=== PATIENT | female | born 1970 | race Caucasian/White ===

== ENCOUNTER 2021-10-14 10:21 | Emergency (ER) | payer BC, SELFPAY ==
[2021-10-14] VITALS (33 sets, daily range): BP systolic 110–148; BP diastolic 69–86; PULSE 60–91; RESP 12–28; TEMP 36.5; O2SAT 94–100
--- NOTE | ~2021-10-14 | CT_ITS ---
EXAMINATION: CTA chest PE protocol DATE: 10/14/2021 17:26 INDICATION: Chest pain and dyspnea TECHNIQUE: Computed tomography (CT) pulmonary angiogram of the chest was performed with 100 mL Omnipa que-350 intravenous contrast. Additional 3D reconstructions utilizing coronal maximum intensity proje ction (MIP) were performed. Automated exposure control and iterative reconstruction technique were em ployed. The dose-length product was 681.38 mGy-cm. COMPARISON: None FINDINGS: Excellent contrast opacification of the pulmonary arteries. There is mild streak artifact from dense contrast in the superior vena cava and right atrium. Minimal scattered respiratory motion artifact wh ich does not significantly limit evaluation. No pulmonary embolism. Tiny calcified nodule along the r ight minor fissure consistent with old granulomatous disease. No pneumonia, pulmonary edema, pleural effusion or pneumothorax. Heart size is normal. No pericardial effusion. Thoracic aorta is normal in caliber with no dissection. No pathologically enlarged thoracic lymphadenopathy. Small sliding-type h iatal hernia. 3.5 cm rim calcified splenic lesion near the hilum with relatively low central attenuat ion with no contrast enhancement which could represent either sequela of old trauma and hematoma or p otentially a completely thrombosed splenic artery aneurysm. Cholecystectomy clips at the gallbladder fossa. Moderate thoracic spondylosis. IMPRESSION: 1. No pulmonary embolism or other acute cardiopulmonary disease. 2. Small sliding-type hiatal hernia. 3. 3.5 similar rim calcified splenic lesion with differential including sequelae of old trauma/hemato ma or thrombosed splenic artery aneurysm. Reviewed, dictated and finalized at location A. IMPRESSION: 1. No pulmonary embolism or other acute cardiopulmonary disease. 2. Small sliding-type hiatal hernia. 3. 3.5 similar rim calcified splenic lesion with differential including sequela e of old trauma/hematoma or thrombosed splenic artery aneurysm.
--- NOTE | ~2021-10-14 | XR_ITS ---
XR chest 2V DATE: 10/14/2021 10:40 INDICATION: Left chest pain. History of smoking. TECHNIQUE: PA and lateral views COMPARISON: None FINDINGS: Rounded approximately 3.1 cm a shell calcification of the left upper quadrant which may be within the spleen or possibly calcified splenic artery aneurysm. Normal heart size. No hilar or mediastinal enlargement. No pulmonary infiltrate or consolidation, ple ural effusion or pulmonary vascular congestion or pneumothorax. Status post cholecystectomy. Mild degenerative change of the thoracic and lumbar spine. IMPRESSION: 3.1 cm egg shell calcification, left upper quadrant, possibly splenic or splenic artery c alcified aneurysm Status post cholecystectomy No active cardiopulmonary disease Reviewed, dictated and finalized at location B. IMPRESSION: 3.1 cm egg shell calcification, left upper quadrant, possibly splen ic or splenic artery calcified aneurysm Status post cholecystectomy No active cardiopulmonary disease
--- NOTE | 2021-10-14 10:23 | ECG_ITS ---
Measurements Intervals [place] Rate: 85 P: 41 UT: 145 QRS: 37 QRSD: 73 T: 35 QT: 332 QTc: 396 Interpretive Statements SINUS RHYTHM BASELINE ARTIFACT LOW QRS VOLTAGE IN PRECORDIAL LEADS CANNOT RULE OUT SEPTAL MYOCARDIAL INFARCTION, OF INDETERMINATE AGE BORDERLINE ECG NO PREVIOUS ECG AVAILABLE FOR COMPARISON Electronically Signed On 10-14-2021 12:53:55 CDT by Minor Baez M.D.
[2021-10-14 10:46] LABS: Basophils Percent Auto 0.5 % (0.2-1.2); Eosinophils Absolute Auto 0.1 K/mm3 (0-0.3); Eosinophils Percent Auto 2.2 % (0-4.4); Hematocrit 43.6 % (37.0-47.0); Hemoglobin 13.9 g/dL (12.0-15.0); Immature Granulocyte Absolute 0.01 K/mm3 (0.00-0.031); Immature Granulocyte Percent A 0.2 % (0-0.5); Lymphocytes Absolute Auto 2.11 K/mm3 (0.9-3.2); Mean Corpuscular HGB Conc 31.9 g/dl (32-36); Mean Corpuscular Hemoglobin 29.1 pg (26-34); Mean Corpuscular Volume 91.4 fl (80-100); Mean Platelet Volume 10.4 fl (7.4-10.4); Monocytes Absolute Auto 0.3 K/mm3 (0.1-0.6); Monocytes Percent Auto 5.3 % (2.6-8.5); Neutrophils Absolute Auto 3.4 K/mm3 (1.3-6.7); Neutrophils Percent Auto 56.8 % (45.5-73.1); Platelet Count Result 200 k/mm3 (150-375); Red Blood Count 4.77 M/mm3 (4.2-5.4); Red Cell Distribution Width 13.5 % (11.5-14.5)
[2021-10-14 10:50] LABS: Alanine Aminotransferase 22 U/L (6-35); Albumin Level 4.5 g/dL (3.5-5.1); Alkaline Phosphatase 68 U/L (38-126); Anion Gap 7 mmol/L (8-16); Aspartate Amino Transferase 24 U/L (14-36); Bilirubin,Total 0.7 mg/dL (0.2-1.3); Blood Urea Nitrogen 17 mg/dL (7-17); Calcium 9.4 mg/dL (8.4-10.2); Carbon Dioxide 27 mmol/L (22-30); Chloride 103 mmol/L (98-107); Estimated CRCL calculation 83 ml/min; Estimated Glomerular Filt Rate > 60; Glucose 104 mg/dL (65-110); Lipase 121 U/L (23-300); Potassium 4.3 mmol/L (3.4-5.0); Sodium 137 mmol/L (137-145)
[2021-10-14 10:56] LABS: Prothrombin Time 13.1 Seconds (11.1-14.7)
[2021-10-14 10:57] LABS: Partial Thromboplastin Time 32.8 SECONDS (22.3-36.8)
[2021-10-14 11:02] LABS: Troponin I < 0.012 ng/mL (0.000-0.034)
[2021-10-14] MEDS: KETOROLAC 30 MG/ML VIAL (*BKC) IV PUSH (11:40)
[2021-10-14 12:16] LABS: D Dimer 0.27 ug/mL (<0.48)
[2021-10-14 13:58] LABS: Troponin I < 0.012 ng/mL (0.000-0.034)
[2021-10-14] MEDS: BELLADONNA ALK/PHENOB ELIX 10 ML, MAG HYDROX/ALUMINUM HYD/SIMETH 30 ML, LIDOCAINE HCL 2... PO (16:38)
--- NOTE | 2021-10-14 16:53 | ED.CHESTPAIN ---
HPI - Chest Pain General Chief Complaint: Chest Pain Stated Complaint: chest pain Time Seen by Provider: 10/14/21 11:16 Source: RN notes reviewed History of Present Illness HPI narrative: Patient presents emergency department from home for chest pain. Patient states chest pain has been ongoing since yesterday morning states the pain is constant located left-sided chest states that the pain never resolves the pain at times is worse with deep inspiration and feels like it catches she denies any trauma or injury she did denies any fevers or chills abdominal pain nausea vomiting other symptoms Related Data Allergies Allergy/AdvReac Type Severity Reaction Status Date / Time Sulfa (Sulfonamide Allergy Intermediate Swelling Verified 10/14/21 11:28 Antibiotics) Review of Systems Review of Systems: Gen.: Denies fevers or chills ENT: Denies congestion Respiratory: Reports shortness of breath CV: See HPI GI: Denies abdominal pain nausea, emesis or diarrhea Musculoskeletal: Denies back pain or muscle pain Neuro: Denies numbness, tingling, weakness or focal weakness Skin: Denies rash Except as documented, all other systems reviewed and negative [facility] Past Medical History Medical History (Updated 10/14/21 @ 18:14 by Loc Han DO) Patient denies significant medical history Social History Social History (Updated 10/14/21 @ 16:54 by Loc Han DO) Smoking status: Current every day smoker Exam Narrative: APPEARANCE: No acute distress, nontoxic, resting in bed EYES: EOMI HEENT: Normocephalic, atraumatic, OMM RESPIRATORY: No respiratory distress Clear to auscultation bilaterally with no rhonchi wheezing or rales. CARDIOVASCULAR: Regular rate and rhythm without murmurs rubs or gallops. Chest: Tender palpation left anterior superior chest wall ABDOMINAL: Soft, nontender, nondistended, no rebound or guarding MUSCULOSKELETAl: Moves all extremities. No clubbing, cyanosis or edema. NEURO: Awake and alert. Following commands, speech normal, no focal deficits SKIN:: Warm, dry. No rashes lesions or abrasions PSYCHIATRIC: Normal affect/mood, Course Course Emergency Course: Discussed with Dr. Baez presentation work-up. At this time feels patient may be discharged follow-up as an outpatient Discussed with patient her splenic calcification she states that this all that has been fully work-up performed past Discussed with patient results of workup and diagnosis. Discussed need for follow-up with primary care, proper use of medication, and reasons to return to the emergency department. Patient understands and agrees to current treatment plan Vital Signs Vital signs: Vital Signs Temperature 97.7 F 10/14/21 10:40 Pulse Rate 86 10/14/21 10:40 Respiratory Rate 18 10/14/21 10:40 Blood Pressure 146/80 H 10/14/21 10:40 Pulse Oximetry 99 10/14/21 10:40 Oxygen Delivery Room Air 10/14/21 10:40 Temperature 97.7 F 10/14/21 10:40 Pulse Rate 62 10/14/21 17:33 Respiratory Rate 15 10/14/21 17:33 Blood Pressure 148/76 H 10/14/21 17:01 Pulse Oximetry 99 10/14/21 17:33 Oxygen Delivery Room Air 10/14/21 10:40 MDM - Chest Pain MDM Narrative Medical decision making narrative: Patient's EKGs and labs are without significant high risk changes. Cardiac risk factors reviewed. Patient is felt likely low risk for ACS and reasonable for further risk stratification testing as an outpatient. No aneurysm pulmonary embolism or pneumonia seen on CTA chest patient is felt to be a reasonable candidate for continued evaluation as an outpatient patient's been in the emergency department with pain for over 24 hours 3 troponins all negative in the ER Lab Data Result diagrams: 10/14/21 10:29 10/14/21 10:29 Labs: Lab Results 10/14/21 10/14/21 10/14/21 Range/Units 10:29 10:29 10:29 WBC 6.0 (4.5-10.0) K/mm3 RBC 4.77 (4.2-5.4) M/mm3 Hgb 13.9 (12.0-15.0) g
[2021-10-14 17:28] LABS: Troponin I < 0.012 ng/mL (0.000-0.034)
== END 2021-10-14 18:20 | disposition home or self-care (01) ==
PROVIDERS: Emergency Provider Emergency Medicine; PCP Physician Assistant
DX: R07.89 Other chest pain (principal)
CPT/HCPCS: 36415; 71046; 71275; 80053; 83690; 84484; 85025; 85380; 85610; 85730; 93005; 96374; 99284; A9270; J1885; Q9967

== ENCOUNTER 2023-10-05 09:11 | Outpatient (CLI) | payer BC, SELFPAY ==
--- NOTE | ~2023-10-05 | MR_ITS ---
EXAMINATION: MR lumbar spine wo con DATE: 10/05/2023 09:59 INDICATION: Other intervertebral disc displacement,lumbar . TECHNIQUE: Magnetic resonance imaging (MRI) of the lumbar spine was performed without intravenous con trast. Sequences included sagittal T2-weighted FSE, sagittal T2-weighted FS FSE, sagittal T1-weighted FSE, and axial T2-weighted FSE. COMPARISON: CTPA 10/14/2021 2 FINDINGS: 12 rib-bearing thoracic vertebral bodies identified on prior CTPA. The last fully formed an d hydrated disc in this examination is designated L5-S1. Rudimentary disc at S1-S2. Modic type II sayra nge at L1-2. Conus terminates at L1-2. Severe height loss and mild marginal osteophytosis at L1-2. Mi ld height loss and hydration loss at L5-S1. The following disc levels are specifically discussed: T11-T12: The disc does not extend beyond the endplate margin. There is no facet joint osteoarthritis. There is no neural foraminal stenosis. There is no central canal stenosis. T12-L1: The disc does not extend beyond the endplate margin. There is no facet joint osteoarthritis. There is no neural foraminal stenosis. There is no central canal stenosis. L1-L2: Mild diffuse bulge. There is mild facet joint osteoarthritis. There is no neural foraminal geno nosis. There is no central canal stenosis. L2-L3: The disc does not extend beyond the endplate margin. There is mild facet joint osteoarthritis. There is no neural foraminal stenosis. There is no central canal stenosis. L3-L4: The disc does not extend beyond the endplate margin. There is mild facet joint osteoarthritis. There is no neural foraminal stenosis. There is no central canal stenosis. L4-L5: The disc does not extend beyond the endplate margin. There is mild facet joint osteoarthritis. There is no neural foraminal stenosis. There is no central canal stenosis. L5-S1: The disc does not extend beyond the endplate margin. There is mild facet joint osteoarthritis. There is no neural foraminal stenosis. There is no central canal stenosis. IMPRESSION: Transitional anatomy, recommend radiographs of the entire spine for accurate spinal level numbering i f intervention is planned. Multilevel degenerative disc disease, moderate at L1-2. No severe central canal or neural foraminal narrowing. Multilevel mild facet arthropathy. Reviewed, dictated and finalized at location K. IMPRESSION: Transitional anatomy, recommend radiographs of the entire spine for accurate sp inal level numbering if intervention is planned. Multilevel degenerative disc d isease, moderate at L1-2. No severe central canal or neural foraminal narrowing . Multilevel mild facet arthropathy.
== END 2023-10-05 09:12 ==
LOC: MICIMG 09:13
PROVIDERS: PCP Physician Assistant
DX: M51.26 Other intervertebral disc displacement, lumbar region (principal)
CPT/HCPCS: 72148

== ENCOUNTER 2025-03-13 00:59 | Day surgery (SDC) | payer BC, SELFPAY ==
[2025-02-14 13:49] VITALS: BMI 44.5
--- OUTSIDE RECORDS SUMMARY | 2025-03-13 01:01 | XMS_ITS | Data Portability ---
Author Organization [facility] Address [address] [place] [address] Assessment Encounter Date Assessment Date Assessment LastModified by Organization Details LastModified Time 11/07/2023 11/07/2023 Mammogram: dec 2022: coming up due. sees dr. cunningham colonoscopy: pt declines eye exam: overdue dental exam: way overdue. pt follows with dr. jacques of cardiology for her heart palpitations and cholesterol. [email or web address] Not available 11/07/2023 15:26:20 Plan of Treatment Reminders Order Date Submit Date Provider Last Modified By Organization Details Last Modified Time Details Appointments None recorded. Lab insulin, serum 2023 024 [facility] (Lab), [address] [place], [address], 4 14:17:25 TSH, serum, reflex free T4 2023 024 [facility] (Lab), [address] [place], [address], 4 20:51:25 CMP, serum or plasma 2023 024 [facility] (Lab), [address] [place], [address], 4 20:51:25 CBC w/ auto diff [email or web address] (Lab), [address] [place], [address], 17:29:02 vitamin B12 + folate, serum or blood 2023 024 [facility] (Lab), [address] [place], [address], 20:51:25 lipid panel, serum 2023 024 [facility] (Lab), [address] [place], [address], 20:51:24 hemoglobin A1c, QN, blood [address] (Lab), [address] [place], [address], 17:29:02 Referral None recorded. Procedures None recorded. Surgeries None recorded. Imaging None recorded. Medication Orders None recorded. Patient TargetsNo targets recorded. Patient Instructions Encounter Date Encounter Id Patient Instructions Last Modified By Organization Details Last Modified Time 11/07/2023 [id number] A healthy lifestyle: care instructions [email or web address] Not available 11/07/2023 15:35:35 Reason for Referral None Reported. Results Created Date Observation Date Name Description Value Unit Range Abnormal Flag Note LastModifiedBy Organization Detail LastModifiedTime 10/07/1910/05/2023 MRI, lumba r spine , w/o contr ast No observ ation record ed. [email or web address] [facility] [address], [place], [address], 10/07/2023 10:39:00 12/29/1912/29/2023 home sleep study No observ ation record ed. [email or web address] [facility] [address], [place], [address], 12/30/2023 17:53:10 12/29/19 24 12/26/2023 home sleep study No observ ation record ed. [email or web address] [facility] [address], [place], [address], 12/30/2023 17:53:35 03/11/20 24 03/09/2024 PET-C T, myoca rdial perfu harika, multi ple studi es at rest and stres s No observ ation record ed. [email or web address] [facility] [address] [facility], [place], [address], 03/11/2024 22:18:55 04/10/19 25 04/10/2024 , echoc ardio gram No observ ation record ed. [email or web address] [facility] [address] [facility] [address], [place], [address], 04/11/2024 17:28:24 Result Notes None recorded. Problems Name Problem SNOMED Code Status Onset Date Resolution Date Notes Provider Name and Address Organization Details Recorded Time Body mass index 40+ - severely obese 959534054 Active 2023 MARLENA Pantoja Attn: Accountdeuce g,[address], [place], [address], [place] - [facility] 4 15:35:07 Obesity 130660117 Active 2023 MARLENA Pantoja Attn: Accountin g,[address], [place], [address], [place] [facility] 4 15:35:10 Hyperlipide oc 17473207 Active 2023 MARLENA Pantoja Attn: Accountin g,[address], [place], [address], [place] [facility] 4 20:23:48 Gastroesoph ageal reflux disease without esophagitis 054867016 Active 2023 MARLENA Pantoja Attn: Accountin g,[address], [place], [address], [place] [facility] 4 20:24:31 Long-term drug therapy Active 2023 MARLENA Pantoja Attn: Stacy mclean,[address], [place], [address], [facility] - [facility] 4 20:24:47 Colon cancer screening declined 4276830059463 9 Active 2023 MARLENA Pantoja Attn: Stacy mclean,[address], [place], [address], [facility] - [facility] 4 20:25:11 Positive screening for depression on PHQ-9 (Patient Health Questionnai re 9) 8584449474829 00 Active 2023 MARLENA Pantoja Attn: Stacy mclean,[address], [place], [address], [facility] - [place] 4 20:25:36 Problem Notes None recorded. Procedures Surgical History Date Name Laterality Status Provider Name and Address Organization Details Recorded Time 03/14/19 16 procedure on ovary completed Brandyn Mancia MA [facility] 11/07/2023 15:41:51 03/14/19 16 cystopexy completed Brandyn Mancia MA [facility] 11/07/2023 15:42:03 03/14/18 97 delivery completed Brandyn Mancia MA [facility] 11/07/2023 15:41:27 03/14/18 91 Dilation and Curettage completed Brandyn Mancia MA [facility] 11/07/2023 15:41:34 03/14/18 80 Tonsillectomy completed Brandyn Mancia MA [facility] 11/07/2023 15:40:45 Imaging Results None recorded. Procedure Notes None recorded. Medical Equipment None Reported. Allergies Allergen ID Allergen Name Allergen Category Reaction Reaction Severity Criticality Documentation Date Start Date Code Code System Note Provider Name and Address Organization Details Recorded Time 609803 Substance with sulfonami de structure and antibacte rial mechanism of action (substanc e) medicatio n Not available Not available high 05/16/2024 75486 8003 SNMARTI Kauffman LPN null, [place] - [place] 5 10:50:00 242677 Product containin g 3-hydroxy -3-methyl glutaryl- coenzyme A reductase inhibitor (product) medicatio n Not available Not available high 05/16/2024 01628 009 KACI Teague, [facility] 10:50:14 Medications Name Sig Start Date Stop Date Status Note LastModified by Organization Details LastModified Time atorvastati n 20 mg tablet TAKE 1 TABLET BY MOUTH EVERY DAY 11/06 completed Not Available Not Available Not Available azithromyci n 250 mg tablet TAKE 2 TABLETS BY MOUTH TODAY, THEN TAKE 1 TABLET DAILY FOR 4 DAYS DIRECTED 11/06 completed Not Available Not Available Not Available prednisone 20 mg tablet TAKE 2 TABLETS BY MOUTH DAILY X5 DAYS 11/06 completed Not Available Not Available Not Available pantoprazol e 40 mg tablet,gertrude yed release TAKE 1 TABLET BY MOUTH EVERY DAY 11/06 completed Not Available Not Available Not Available furosemide 20 mg tablet TAKE 2 TABLETS BY MOUTH ONCE DAILY DIRECTED active Not Available Not Available No t Available metoprolol succinate ER 25 mg tablet,exte nded release 24 hr TAKE 1 TABLET BY MOUTH EVERY DAY active Not Available Not Available No t Available albuterol sulfate HFA 90 mcg/actuati on aerosol inhaler TAKE 2 PUFFS BY MOUTH EVERY 4 TO 6 HOURS NEEDED active Not Available Not Available No t Available ezetimibe 10 mg tablet TAKE 1 TABLET BY MOUTH EVERY DAY active Not Available Not Available No t Available nitrofurant oin monohydrate /macrocryst als 100 mg capsule TAKE 1 CAPSULE BY MOUTH EVERY 12 HOURS active Not Available Not Available No t Available Zepbound 2.5 mg/0.5 mL subcutaneou s pen injector INJECT 2.5 MG SUBCUTANE OUSLY WEEKLY active Not Available Not Available No t Available Vitals Date Recorded Respiratory rate Systolic And Diastolic Provider Name and Address Organization Details Last Updated DateTime 11/07/2023 20 /min 118/80 mm[Hg] MARLENA Pantoja Attn: Accounting,[address], [place], [address], [place] 11/07/2023 15:33:38 Date Recorded Body weight Body mass index (BMI) Body height Heart rate Oxygen saturation Body temperature Systolic And Diastolic Provider Name and Address Organization Details Last Updated DateTime 4 808800. 05 g 45.2 kg/m2 160.02 cm 72 /min 98 % 98.2 [degF] 102/70 mm[Hg] Brandyn Mancia MA [place] [facility] 15:01:28 Social History Question Answer Notes LastModified by Organizat ion Details LastModified Time Tobacco Smoking Status Former Smoker Brandyn Mancia MA null, [place] 11/07/2023 14:58:46 What Was The Date Of Your Most Recent Tobacco Screening? 11/07/2023 Information not available 11/07/2023 What Is Your Current Pack Years? 30ormorepack years Information not available 11/07/2023 At What Age Did You Start Smoking Tobacco? 17 Information not available 11/07/2023 How Much Tobacco Do You Smoke? 1 PPW Information not available 11/07/2023 How Many Years Have You Smoked Tobacco? 30 Information not available 11/07/2023 Sex: Female Functional Status Question Answer Note LastModified by Organizat ion Details LastModified Time Do you or have you ever used any other forms of tobacco or nicotine? No Information not available 11/07/2023 What is your level of alcohol consumption? Occasional Information not available 11/07/2023 Mental Status None recorded. Family History Relationship Description Onset Age of this Age Resolved Age Notes LastModified by Organization Details LastModified Time Mother Coronary arterioscler osis [email or web address] Not available 15:42:42 Mother Diabetes mellitus [email or web address] Not available 15:42:49 Mother Disorder of thyroid gland [email or web address] Not available 15:43:08 Mother Heart disease [email or web address] Not available 15:43:17 Mother Hypercholest erolemia [email or web address] Not available 15:43:28 Mother Hypertensive disorder [email or web address] Not available 15:43:34 Mother Kidney disease [email or web address] Not available 15:43:47 Father Hypercholest erolemia [email or web address] Not available 15:43:57 Medical History Condition Response Acid Reflux (GERD) Y High Cholesterol Y Gynecological HistoryNo gynecological history recorded. Obstetrics History GPAL:G 0 P 0 0 0 0 Past Encounters Encounter ID Performer Location Encounter Start Date Encounter Closed Date Diagnosis/Indication Diagnosis SNOMED-CT Code Diagnosis ICD10 Code Diagnosis IMO Codes Diagnosis Note [id number] Omid Ross MD [facility]pin [address] [place] [address] 11/07/2023 14:30:00 11/07/2023 15:46:48 Adult health examination 744388846 Z00.01 Annual wellness exam complete Hyperlipidemia 38950321 E78.5 Fasting lipid panel is due. Patient is on Zetia 10 mg daily and she also follows routinely with Cardiology which is a [facility] ip that she establish years ago with some cardiac symptoms. Gastroesop hageal reflux disease without esophagitis 481830673 K21.9 Patient does have underlying acid reflux and takes Nexium or Prilosec over-the-c ounter for symptom control Long-term drug therapy 970715535 Z79.899 cmp, cbc and b12, folate labs are due Colon canc er screening declined 4789952650 9109 Z53.20 Patient declines colon cancer screening methods Weight gain 7505123 R63. 5 Screening insulin and thyroid levels were ordered for reported weight gain Diabetes m ellitus screening 825530625 Z13.1 Screening A1c is due Body mass index 40+ - severely obese 817309095 Z68.42 BMI 45.2 Obesity 712893099 E66.8 discussed healthy diet, exercise, controllin g carbohydra harley and added sugars in the diet Positive s creening for depression on PHQ-9 (Patient Health Questionnaire 9) 3745707223 11440 Z13.31 Patient scored a 7 on screening today. She reports no acute concerns or problems with her mental status and has no requests for any treatment or discussion s. Health Concerns Section Related Observation LastModified by Organization Detai ls LastModified Time None Recorded Concern Status LastModified by Organization Details LastModified Time None Recorded Advance Directives Directive None Recorded Payers Insurance Date Sequence Insurance Name Policy Number Policy Santos Covered Member ID Santos Member ID Guarantor Name 11/25/2023 1 [place] ([place]) [id number] Fernando Crump [id number] Saraiharriet Crump Notes Date Note Type Note Provider Name and Address Organization Details Recorded Time 4 text/html HyperlipidemiaReported by PatientPatient is taking Zetia 10 mg daily which is managed by Cardiology. Reflux/GERDReported by PatientPatient is taking [id number] Nexium or Prilosec whichever she can get it cheaper cost and she takes this daily for symptom management. Palpitation history which is managed by Dr. Jacques of Cardiology. She takes metoprolol succinate ER 25 mg daily MARLENA Pantoja Attn: Accounting,[address] [place], [address], [facility] - [place] 11/13/2023 20:27:26 OBGyn Episode No OBEpisode recorded.
[2025-03-13 09:32] VITALS: BP 119/79; PULSE 76; RESP 18; TEMP 36.1; O2SAT 100; BMI 46.3
[2025-03-13] MEDS: LACTATED RINGERS 1,000 ML 150 ML IV CONT (09:43)
--- NOTE | 2025-03-13 09:47 | P.PNAN_ITS ---
Anes - Initial Pre Proc Eval Procedure: Operation Date: 03/13/25 11:00 Proposed Procedures p EGD & Screening Colonoscopy - Skyler Anne MD Date/Time: 03/13/25 09:47 Surgeon: Skyler Anne MD Pre Op Diagnosis: GERD, Screening Patient Data Age: 55 Gender: F Height: 1.57 m Weight: 115 kg Last Vital Signs Temp 36.1 C L 03/13/25 09:32 Pulse 76 03/13/25 09:32 Resp 18 03/13/25 09:32 BP 119/79 03/13/25 09:32 Pulse Ox 100 03/13/25 09:32 O2 Del Method Room Air 03/13/25 09:32 Allergies Allergy/AdvReac Type Severity Reaction Status Date / Time Sulfa (Sulfonamide Allergy Intermediate Swelling Verified 03/13/25 09:31 Antibiotics) Home Medications ?Medication ?Instructions ?Recorded ?Confirmed ?Type esomeprazole magnesium 20 mg 20 mg PO DAILY 10/15/24 1 History capsule,delayed release Patient hx anesthesia problems: none Family hx anesthesia problems: none Results Review: All pre-operative results and documents have been reviewed as part of the pre- operative evaluation. [facility] Past Medical History Medical History Mild acid reflux Screening mammogram, encounter for Anxiety Patient denies significant medical history Surgical History Surgical History S/P removal of ovarian cyst History of tonsillectomy History of hysteroscopy (11/20/15) Hscope D&C, LSO-menometrorrhagia, left adnexal mass- benign- Corpus Luteum Hemorrhagic, Adesions, Paratubal Cysts Hx of cholecystectomy (~2009) Delivery by section (~2005) rpt c/s with Tubal ligation Delivery by section (~1996) primary c/s arrest of dilation History of gynecological procedure (~1989) suction D&C missed AB Family History Family History Mother Diabetes mellitus Heart disease Hypothyroidism Kidney disorder Hypertension Father Lung cancer Social History Social History Years smoked: 10 Smoking status: Former smoker Tobacco type: cigarettes Second hand tobacco smoke exposure: No Smoking end date: 07/13/23 Alcohol intake: never Alcohol use details: social 1-2 every 6 months? Substance use: never Substance use type: does not use Lack of Transportation: No Lack of Food: Sometimes True Current Housing: I Have Housing Concerned About Future Housing: No Difficulty Paying Gas/Electric Bills: No Difficulty Paying for Meds: No Currently Unemployed: Decline to Answer Education: High School Diploma/GED Difficulty w/ Childcare or Family Care: No Living arrangements: with family Additional living arrangements comments: Occupation/Education: other Additional occupation/education comments: Homemaker Gender identity (if verbalized by the patient): Female Sexual Orientation (if Verbalized by the Patient): Straight or Heterosexual Spiritual care concerns: No Anes - Eval Final PreProcedure Day of Procedure 03/13/25 09:47 Patient weight: morbidly obese Heart: regular rate and rhythm Lungs: clear to auscultation Airway: Mallampati scale class II Neurological: alert and oriented Last oral intake: >/= 8 hours ASA classification: III Emergent: no Anesthetic plan: proceed Anesthesia type and monitoring: general GIVS and standard monitoring Results Review: All pre-operative results and documents have been reviewed as part of the pre- operative evaluation. Informed Consent: The patient's anesthetic plan and its attendant risks and benefits were discussed with the patient/family/POA. Questions were solicited and answers provided to the satisfaction of the patient/family/POA.
--- NOTE | 2025-03-13 10:56 | PM.HPGS ---
History of Present Illness History of Present Illness Consent: Risks, benefits, and alternatives have been discussed and questions answered. Patient agrees to proceed with procedure. Chief complaint: GERD, Screening Narrative: Sarai Crump is a 55 year old female with a history of chronic GERD. Patient also here for screening colonoscopy. Review of Systems Review of Systems: Gen.: Denies fevers or chills ENT: Denies congestion Respiratory: Reports shortness of breath CV: See HPI GI: Denies abdominal pain nausea, emesis or diarrhea Musculoskeletal: Denies back pain or muscle pain Neuro: Denies numbness, tingling, weakness or focal weakness Skin: Denies rash Except as documented, all other systems reviewed and negative PMFSH Past Medical History Medical History Mild acid reflux Screening mammogram, encounter for Anxiety Patient denies significant medical history Surgical History Surgical History S/P removal of ovarian cyst History of tonsillectomy History of hysteroscopy (11/20/15) Hscope D&C, LSO-menometrorrhagia, left adnexal mass- benign- Corpus Luteum Hemorrhagic, Adesions, Paratubal Cysts Hx of cholecystectomy (~2009) Delivery by section (~2005) rpt c/s with Tubal ligation Delivery by section (~1996) primary c/s arrest of dilation History of gynecological procedure (~1989) suction D&C missed AB Family History Family History Mother Diabetes mellitus Heart disease Hypothyroidism Kidney disorder Hypertension Father Lung cancer Social History Social History Years smoked: 10 Smoking status: Former smoker Tobacco type: cigarettes Second hand tobacco smoke exposure: No Smoking end date: 07/13/23 Alcohol intake: never Alcohol use details: social 1-2 every 6 months? Substance use: never Substance use type: does not use Lack of Transportation: No Lack of Food: Sometimes True Current Housing: I Have Housing Concerned About Future Housing: No Difficulty Paying Gas/Electric Bills: No Difficulty Paying for Meds: No Currently Unemployed: Decline to Answer Education: High School Diploma/GED Difficulty w/ Childcare or Family Care: No Living arrangements: with family Additional living arrangements comments: Occupation/Education: other Additional occupation/education comments: Homemaker Gender identity (if verbalized by the patient): Female Sexual Orientation (if Verbalized by the Patient): Straight or Heterosexual Spiritual care concerns: No Meds Home Medications and Allergies Home Medications ?Medication ?Instructions ?Recorded ?Confirmed ?Type esomeprazole magnesium 20 mg 20 mg PO DAILY 10/15/24 03/13/25 History capsule,delayed release Allergies Allergy/AdvReac Type Severity Reaction Status Date / Time Sulfa (Sulfonamide Allergy Intermediate Swelling Verified 03/13/25 09:31 Antibiotics) Vital Signs Vital Signs - 24 hr 03/13/25 09:32 Temperature 97 F L Pulse Rate 76 Respiratory Rate 18 Blood Pressure 119/79 Pulse Oximetry 100 Oxygen Delivery Room Air Exam Narrative: APPEARANCE: No acute distress, nontoxic, resting in bed EYES: EOMI HEENT: Normocephalic, atraumatic, OMM RESPIRATORY: No respiratory distress Clear to auscultation bilaterally with no rhonchi wheezing or rales. CARDIOVASCULAR: Regular rate and rhythm without murmurs rubs or gallops. Chest: Tender palpation left anterior superior chest wall ABDOMINAL: Soft, nontender, nondistended, no rebound or guarding MUSCULOSKELETAl: Moves all extremities. No clubbing, cyanosis or edema. NEURO: Awake and alert. Following commands, speech normal, no focal deficits SKIN:: Warm, dry. No rashes lesions or abrasions PSYCHIATRIC: Normal affect/mood, Assessment and Plan Assessment and plan (1) Chronic GERD: Code(s): K21.9 - Gastro-esophageal reflux disease without esophagitis Status: Acute (2) Encounter for screening colonoscopy: Code(s): Z12.11 - Encounter for screening for malignant neoplasm of colon Status: Acute Plan 55-year-old female with history of chronic GERD. Patient also here for screening colonoscopy. EGD with colonoscopy will be done today.
--- NOTE | 2025-03-13 11:06 | SUR.OPER ---
EGD ended at 1101, colon began at 1106.
[2025-03-13 11:23] VITALS: BP 97/42; PULSE 68; RESP 19; O2SAT 100
[2025-03-13 11:33] VITALS: BP 101/45; PULSE 64; RESP 17; O2SAT 100
[2025-03-13 11:43] VITALS: BP 120/58; PULSE 67; RESP 20; O2SAT 100
== END 2025-03-13 11:50 | disposition home or self-care (01) ==
PROVIDERS: Internal Medicine Gastroenterology; PCP Internal Medicine; Referring Provider Internal Medicine; Visit Provider Internal Medicine Gastroenterology
PROC: 0DJ08ZZ Inspection of Upper Intestinal Tract, Via Natural or Artificial Opening Endoscopic (ICD-10-PCS; CPT 45378; principal; 2025-03-13 11:00)
DX: Z12.11 Encounter for screening for malignant neoplasm of colon (principal); K21.9 Gastro-esophageal reflux disease without esophagitis; Z87.891 Personal history of nicotine dependence; E66.01 Morbid (severe) obesity due to excess calories; Z68.42 Body mass index [BMI] 45.0-49.9, adult
CPT/HCPCS: 45378; 43235; J2003; J2704; J7120